=== PATIENT | male | born 1960 | race Caucasian/White ===

== ENCOUNTER 2020-10-16 08:03 | Day surgery (SDC) | payer BC ==
[~2020-10-16] VITALS: Ht 188 cm; Wt 148.9 kg
[2020-10-16] VITALS (118 sets, daily range): BP systolic 107–157; BP diastolic 61–98; PULSE 74–86; TEMP 97.9–98.5; O2SAT 85–100
[2020-10-16] MEDS ORDERED: LASIX 40MG TABL40 MG PO (08:52)
[2020-10-16] MEDS ORDERED: K-DUR 10 MEQ T10 MEQ PO (08:53)
[2020-10-16] MEDS ORDERED: LIPITOR 40MG TA40 MG PO (08:53)
[2020-10-16] MEDS ORDERED: PROTONIX 40MG T40 MG PO (08:54)
[2020-10-16] MEDS ORDERED: GLUCOPHAGE500 MG/TAB PO (09:29)
[2020-10-16] MEDS ORDERED: UNIPHYL600 MG PO (09:29)
[2020-10-16] MEDS ORDERED: SINGULAIR 110 MG/TAB PO (09:30)
[2020-10-16] MEDS ORDERED: HYZAAR 50-12.1 UDTAB PO (09:30)
[2020-10-16] MEDS ORDERED: FLEXERIL 1010 MG/TAB PO (09:31)
[2020-10-16] MEDS ORDERED: ZYRTEC 10MG10 MG PO (09:31)
[2020-10-16] MEDS ORDERED: ASPIRIN E.C. 8181 MG PO (09:31)
[2020-10-16] MEDS ORDERED: IRON TABLETS325 MG PO (09:32)
[2020-10-16 09:33] LABS: HEMATOCRIT 42.4 % (42.0-52.0); HEMOGLOBIN 14.5 g/dl (13.5-18.0); MEAN CELL VOLUME 91 fl (80.0-100.0); MEAN CORPUSCULAR HEMOGLOBIN 31 pg (27.0-31.0); MEAN CORPUSCULAR HGB CONC 34 g/dl (33.0-37.0); MEAN PLATELET VOLUME 10.1 fl (7.4-10.4); PLATELET COUNT 181 K/mm3 (130-400); RED BLOOD COUNT 4.66 M/mm3 (4.20-5.60); REDCELL DISTRIBUTION WIDTH-CV 13.6 % (11.5-14.5)
[2020-10-16] MEDS ORDERED: MULTIPLE VITAMI1 TA5 PO (09:33)
[2020-10-16] MEDS ORDERED: ZOHYDRO ER10 MG PO (09:33)
[2020-10-16 09:37] LABS: ALBUMIN 4.3 gm/dL (3.5-5.0); BILIRUBIN,TOTAL 0.8 mg/dL (0.0-1.0); CALCIUM 9.1 mg/dL (8.4-10.2); CHOLESTEROL RISK RATIO 3.5; CREATININE, serum 0.94 (0.66-1.25); MAGNESIUM 1.5 mg/dL (1.6-2.3); POTASSIUM 3.5 mmol/L (3.4-5.0); TOTAL PROTEIN 7.8 gm/dL (6.4-8.2)
[2020-10-16 09:50] LABS: INR 1.2 (0.8-3.0); PROTHROMBIN TIME 12.9 SECONDS (9.7-12.8)
[2020-10-16 09:53] LABS: PARTIAL THROMBOPLASTIN TIME 31.9 SECONDS (26.0-37.0)
--- NOTE | 2020-10-16 12:20 | NUR ---
pt returned to EU 11 via bed from medical laboratory assistant. Pt on telemonitor, 02 on 2L/min NC. pt has Safegurad on for venous ooze earlier and lifting head up, 40cc of air. Has angioseal also to right groin, surrounding area clean and dry. Pt on nitro gtt at 4.5ml/hr with 1/2NS at 100cc/hr to left hand. call light in reach, in room. Dr Davenport to talk with pt and , still having 10/10 bilateral shoulder pain orders for flexeril given also to give po lasix.
--- NOTE | 2020-10-16 13:15 | NUR ---
meds given as ordered lasix and flexeril, pt con't to c/o bilateral shoulder pain. follows directioins well, con't bedrest, TR band intact, no signs of bleeding or swelling
--- NOTE | 2020-10-16 14:00 | NUR ---
Echo ordered and being done in room
--- NOTE | 2020-10-16 14:30 | NUR ---
MS 2 MG IV GIVEN FOR BILATERAL SHOULDER PAIN RATES AT 10/10, AT 1445 NORCO GIVEN PO ORDERED, PT IS AWAKE, ALERT, HAS COOL COMPRESSES ON SHOULDER AND FORHEAD WITH FAN ON. TR SITE REMAINS THE SAME, SAFEGUARD CON'T ON, INTACT, NO SIGNS OF BLEEDING
--- NOTE | 2020-10-16 15:15 | NUR ---
TR BAND STARTED RELEASE, 2CC AT A TIME OVER 30 MIN WITH NO BLEEDING OR SWELLING, BANDAID OVER SITE AND COBAN ON FOR SUPPORT, PT USES URINAL, APPROX 300CC OF URINE, ASSISSTED BY .
--- NOTE | 2020-10-16 16:00 | NUR ---
DR ELLINGTON HERE, NITRO DRIP D'CD AT THIS TIME AND NITRO PATCHES APPLIED ORDERED. PT PAIN LEVEL REMAINS AT 5/10 BUT FEELS ABLE TO REST BETTER, TOOK SNACK EARLIER, AT 1630 REPORT GIVEN TO ICU NURSE, THEN PT WAS TRANSFERRED VIA BED TO ICU #7 TRANSFERRED USING BOARD, SITE REMAINS THE SAME TO RIGHT GROIN
--- NOTE | 2020-10-16 19:19 | NUR ---
REPORTED OFF TO JABIER IRENE; PATIENT RADIAL AND FEMORAL CATH SITES ARE WITHOUT HEMATOMA, OOZING, OR PAIN; PATIENT CURRENTLY RESTING IN BED, CALL LIGHT WITHIN REACH
--- NOTE | 2020-10-16 20:35 | NUR ---
Patient assessed at this time. Alert and oriented, and able to make needs known. Reported level 5 pain to left and right shoulder. Given PRN Mason and Flexeril for pain. Peripheral IV to left hand with fluids running per orders. Site without redness, warmth, swelling, and pain. Denies having SOB and dyspnea. LS CTA in upper lobes, diminished in lower. Repirations even and unlabored. Currently on oxygen at 2 L/min via NC, since patient usually wears CPAP at night, but it is not here. Denies chest pain and discomfort. HRR. Capillary refill less than 3 seconds. Non-tenting skin turgor. BSAx4. Abdomen soft, non-tender. No edema. Gauze/tegarderm to right femoral heart cath site is intact, with scant drainage. No inreased drainage noted. Surrounding skin is without discoloration/hematoma. Denies pain and discomfort to site. Right radial heart cath site has coban to site. Denies pain and discomfort to site. Education given to patient on Brilinta, new blood thinner for patient. Education packet given to him regarding cardiac catheterization discharge, nirtroglycerin, ticagrelor, and moderate sedation in adults after discharge. Patient voices no further questions, needs, or concerns at this time. Resting in bed with call light within reach.
[2020-10-17] VITALS (316 sets, daily range): BP systolic 115–172; BP diastolic 71–99; PULSE 62–80; TEMP 96.8–97.6; O2SAT 74–100
[2020-10-17 06:10] LABS: BASO # 0.1 (0.0-0.2); BASO % 0.5 % (0.0-2.0); EOS # 0.3 (0.0-0.7); EOS % 3.2 % (0-4.0); GRAN # 6.7 (1.4-6.5); GRAN % 69.7 % (42.2-75.2); HEMATOCRIT 42.7 % (42.0-52.0); HEMOGLOBIN 14.1 g/dl (13.5-18.0); LYMPH # 1.7 (1.2-3.4); LYMPH % 17.6 % (20.0-51.0); MEAN CELL VOLUME 93 fl (80.0-100.0); MEAN CORPUSCULAR HEMOGLOBIN 31 pg (27.0-31.0); MEAN CORPUSCULAR HGB CONC 33 g/dl (33.0-37.0); MEAN PLATELET VOLUME 9.8 fl (7.4-10.4); MONO # 0.8 (0.1-0.6); MONO % 8.6 % (1.7-9.3); PLATELET COUNT 152 K/mm3 (130-400); REDCELL DISTRIBUTION WIDTH-CV 13.7 % (11.5-14.5)
[2020-10-17 06:21] LABS: CALCIUM 8.8 mg/dL (8.4-10.2); CREATININE, serum 0.9 (0.66-1.25); POTASSIUM 3.9 mmol/L (3.4-5.0)
--- NOTE | 2020-10-17 06:24 | NUR ---
Patient received PRN Flexeril once this shift, and PRN [place] twice this shift for pain to bilateral shoulders. Has voiced no further complaints of pain or discomfort at this time. Voices no questions, needs, or concerns at this time. Resting in bed with call light within reach.
[2020-10-17] MEDS ORDERED: BRILINTA90 MG PO (11:56)
[2020-10-17] MEDS ORDERED: LIPITOR 80MG80 MG PO (11:57)
[2020-10-17] MEDS ORDERED: NITRO-DUR0.4 MG/PAT TD (11:59)
--- NOTE | 2020-10-17 14:55 | NUR ---
PT given education and discharge insturctions. IV DC'd catheter was in tact. PT has zero complaints. Steady Gait will call with any questions.
== END 2020-10-17 14:55 | disposition home or self-care (01) ==
LOC: COL.CAR 08:03 → ICU 16:54 → COL.CAR 10-17 14:55
PROVIDERS: Internal Medicine Cardiovascular Disease
DX: I25.110 Atherosclerotic heart disease of native coronary artery with unstable angina pectoris (principal); M25.512 Pain in left shoulder; M25.511 Pain in right shoulder; R94.39 Abnormal result of other cardiovascular function study; Z95.1 Presence of aortocoronary bypass graft; Z98.890 Other specified postprocedural states
CPT/HCPCS: OP; C1725; C1760; C1769; C1874; C1887; C1894; C9600; J0583; J1644; J2250; J2270; J3010; Q9967